=== PATIENT | female | born 1960 | race Caucasian/White ===

== ENCOUNTER → 2020-12-01 | Outpatient (CLI) | payer MEDICARE, OTHER ==
[~2020-12-01] MED LIST: COUMADIN4 MG PO; DOCUSATE SODIU100 MG PO; DOXYCYCLINE HY100 M2 PO; FUROSEMIDE40 MG PO; GENTLE LAXATIVE5 M1 PO; IFEREX 150150 MG PO; KENALOG OINT 0.15 GM TOP; MAGNESIUM400 M2 PO; MULTIVITAMINS1 EAC1 PO; NEXIUM40 MG PO; POTASSIUM CHLO20 ME2 PO; SYNTHROID50 MCG PO; VITAMIN C500 M1 PO; WARFARIN SODIUM4 MG PO
== END ==
LOC: EXRD 15:37
DX: Z87.01 Personal history of pneumonia (recurrent) (principal)
CPT/HCPCS: 71045